=== PATIENT | female | born 1940 | race Two or more races ===

== ENCOUNTER 2016-05-02 12:33 | Inpatient (IN) | payer MEDICARE, BC ==
[2016-05-02] VITALS (31 sets, daily range): BP systolic 45–176; BP diastolic 23–127
[~2016-05-02] VITALS: Ht 165.1 cm; Wt 64.9 kg
[2016-05-02] MEDS ORDERED: IV NS 0.9% 500 ML BAG IV ONE (13:00)
[2016-05-02] MEDS ORDERED: PROPOFOL 100 ML IV ONE (13:03)
[2016-05-02] MEDS ORDERED: IV SET PRIMARY PUMP SET 1 EA INFUS.SET MC ONE ×5 (13:03→21:51)
[2016-05-02 14:00] LABS: BASOPHILS # (AUTO) 0.1 /CMM (0.0-0.2); BASOPHILS % (AUTO) 0.8 % (0.0-2.0); DIFF TOTAL % 100 %; EOSINOPHILS % (AUTO) 0.1 % (0.0-6.0); HEMATOCRIT 42 % (33-45); HEMOGLOBIN 12.9 g/dL (11.5-14.8); LYMPHOCYTES # (AUTO) 0.8 /CMM (0.8-4.8); MEAN CORPUSCULAR HEMOGLOBIN 27 PG (26.0-33.0); MEAN CORPUSCULAR HGB CONC 31 g/dl (31.0-36.0); MEAN CORPUSCULAR VOLUME 90 fL (82-100); MONOCYTES # (AUTO) 0.3 /CMM (0.1-1.30); NEUTROPHILS # (AUTO) 11.9 /CMM (1.8-8.9); NEUTROPHILS % (AUTO) 91.1 % (43.0-81.0); PLATELET COUNT (AUTO) 151 /CMM (150-450); RED BLOOD CELL COUNT(AUTO) 4.71 MIL/uL (4.0-5.2); WHITE BLOOD COUNT (AUTO) 13.1 K/uL (4.3-11.0)
[2016-05-02 14:12] LABS: INR 3.28 (0.87-1.13); PROTHROMBIN TIME 34.4 SECS (9.5-12.7)
[2016-05-02 14:17] LABS: TROPONIN I 0.132 ng/mL (0.00-0.056)
[2016-05-02] MEDS ORDERED: IV NS 0.9% 500 ML IV ONE (14:26)
[2016-05-02] MEDS ORDERED: IV SET PRIMARY 1 EA INFUS.SET MC ONE ×3 (14:26→14:49)
[2016-05-02] MEDS ORDERED: DOPAMINE IV ONE (14:30)
[2016-05-02] MEDS ORDERED: CEFTRIAXONE 1GM BAG (ER ONLY) 50 ML IV ONE ×2 (14:30→14:49)
[2016-05-02] MEDS ORDERED: IV NS 0.9% 1,000 ML BAG IV ONE ×2 (14:30→16:00)
[2016-05-02 14:34] LABS: ALANINE AMINOTRANSFERASE 561 U/L (12-78); ALBUMIN 2.3 g/dL (3.4-5.0); ANION GAP 32 (5-14); BILIRUBIN,DIRECT 0.5 mg/dL (0.0-0.2); BILIRUBIN,TOTAL 1.1 mg/dL (0.2-1.0); CALCIUM, SERUM 8.6 mg/dL (8.5-10.1); CARBON DIOXIDE 15 mmol/L (21-32); CHLORIDE 117 mmol/L (98-107); CREATININE 3.4 mg/dL (0.6-1.3); GLUCOSE 62 mg/dL (74-106); INDIRECT BILIRUBIN 0.6 mg/dL (0.0-1.1); TOTAL PROTEIN, SERUM 6.4 g/dL (6.4-8.2)
[2016-05-02] MEDS ORDERED: CLON0.1T PO (14:35)
[2016-05-02] MEDS ORDERED: AMLO5TAB2 PO (14:35)
[2016-05-02] MEDS ORDERED: WARF1TAB47 PO (14:35)
[2016-05-02] MEDS ORDERED: MIRT7.5T10 PO (14:35)
[2016-05-02] MEDS ORDERED: ATOR10TA PO (14:35)
[2016-05-02] MEDS ORDERED: METO25TA6 PO (14:35)
[2016-05-02 14:36] LABS: SODIUM SERUM 156 mmol/L (136-145)
[2016-05-02 14:43] LABS: POTASSIUM 6.8 mmol/L (3.5-5.1); UREA NITROGEN, BLOOD 81 mg/dL (7-18)
[2016-05-02 14:44] LABS: KETONES,URINE Negative (NEGATIVE); LEUKOCYTE ESTERASE ,URINE Large (NEGATIVE); PH,URINE 8.5 (5.0-8.0)
[2016-05-02 14:46] LABS: LACTIC ACID 15.8 mmol/L (0.4-2.0)
[2016-05-02] MEDS ORDERED: IV NS 0.9% 1,000 ML ONE ×2 (14:46→15:29)
[2016-05-02 14:48] LABS: ADD UA MICROSCOPIC YES
[2016-05-02 14:54] LABS: *LACTIC ACID REFLEX FLAG YES
[2016-05-02] MEDS ORDERED: NOREPINEPHRINE 8 MG in IV D5W 500 ML IV PRN (15:00)
[2016-05-02] MEDS ORDERED: SODIUM BICARBONATE SYR 50 MEQ/50 ML DISP.SYRIN IV ONE (15:00)
[2016-05-02] MEDS ORDERED: DEXTROSE 50%-WATER 50 ML DISP.SYRIN IV ONE (15:00)
[2016-05-02] MEDS ORDERED: ALBUTEROL FS 2.5 MG/3 ML VIAL.NEB NEB ONE (15:00)
[2016-05-02] MEDS ORDERED: SODIUM BICARBONATE SYR 100 MEQ in IV D5W 1,000 ML IV ONE (15:00)
[2016-05-02] MEDS ORDERED: INSULIN REGULAR, HUMAN 100 UNIT/ML 10 ML VIAL IV ONE (15:00)
[2016-05-02 15:01] LABS: ADD URINE CULTURE YES; RBC,URINE 21-50 /HPF (0-2); WBC,URINE TOO NUMEROUS TO COUN /HPF (0-3)
[2016-05-02] MEDS ORDERED: INSULIN REGULAR, HUMAN 100 UNIT/ML 10 ML VIAL ONE (15:01)
[2016-05-02] MEDS ORDERED: DEXTROSE 50%-WATER 50 ML DISP.SYRIN ONE ×3 (15:01→23:53)
[2016-05-02] MEDS ORDERED: SODIUM BICARBONATE SYR 50 MEQ/50 ML DISP.SYRIN ONE ×2 (15:01→23:53)
[2016-05-02 15:17] LABS: ASPARTATE AMINOTRANSFERASE 3059 U/L (15-37)
[2016-05-02] MEDS ORDERED: PHYTONADIONE INJ 5 MG in IV D5W 50 ML IV ONE (16:00)
[2016-05-02 16:33] LABS: ABG BASE EXCESS -17.1 mmol/L; ABG HCO3 9.8 mmol/L; ABG PH 7.176 (7.350-7.450); ABG PO2 154.1 mmHg (75.0-100.0); ABG TOTAL HEMOGLOBIN 12.1 G/dL (12.0-16.0); ALLEN TEST Pass; AaDO2 531.9 mmHg; O2Hb 95.9 % (94.0-97.0)
[2016-05-02] MEDS: NOREPINEPHRINE 16 MG in IV D5W 500 ML IV PRN (18:02)
[2016-05-02] MEDS: PHENYLEPHRINE 80 MG in IV D5W 250 ML IV PRN (18:04)
[2016-05-02 20:12] LABS: CALCIUM, SERUM 8.7 mg/dL (8.5-10.1); CREATININE 2.9 mg/dL (0.6-1.3)
[2016-05-02 20:19] LABS: POTASSIUM 7.5 mmol/L (3.5-5.1)
[2016-05-02] MEDS ORDERED: DEXTROSE 50%-WATER 50 ML DISP.SYRIN IVP ONE (20:30)
[2016-05-02 21:09] LABS: PHOSPHORUS 9.3 mg/dL (2.5-4.9)
[2016-05-02] MEDS ORDERED: IV D5/ 0.9% NACL 1,000 ML IV ONE ×2 (21:47→22:00)
[2016-05-02] MEDS ORDERED: IV D5/ 0.9% NACL 1,000 ML IV SCH (22:00)
[2016-05-02] MEDS ORDERED: TOBRAMYCIN 100 MG in IV D5W 50 ML IV ONE (22:00)
[2016-05-02 22:01] LABS: ABG BASE EXCESS -16.2 mmol/L; ABG HCO3 7.3 mmol/L; ABG PCO2 14.9 mmHg (35.0-45.0); ABG PH 7.306 (7.350-7.450); ABG PO2 314.1 mmHg (75.0-100.0); ABG TOTAL HEMOGLOBIN 13.7 G/dL (12.0-16.0); O2Hb 97.5 % (94.0-97.0)
[2016-05-02] MEDS ORDERED: SECONDARY IV SET 1 EA INFUS.SET MC ONE (22:18)
[2016-05-02] MEDS ORDERED: MEROPENEM 500 MG VIAL IV ONE (22:28)
[2016-05-02] MEDS ORDERED: IV NS 0.9% 50 ML IV ONE (22:42)
[2016-05-02] MEDS ORDERED: IV D5/ 0.9% NACL 1,000 ML IV PRN (23:00)
[2016-05-02] MEDS ORDERED: MEROPENEM 500 MG in IV NS 0.9% 50 ML IV SCH (23:00)
[2016-05-02] MEDS ORDERED: SODIUM POLYSTYRENE SULFONATE 15 G/60 ML BOTTLE ONE (23:54)
[2016-05-02] MEDS ORDERED: SODIUM BICARBONATE SYR 50 MEQ/50 ML DISP.SYRIN IV STA (23:55)
[2016-05-02] MEDS ORDERED: DEXTROSE 50%-WATER 50 ML DISP.SYRIN IVP STA (23:55)
[2016-05-03] VITALS (38 sets, daily range): BP systolic 21–128; BP diastolic 12–89
[2016-05-03] MEDS ORDERED: IV D5W 1,000 ML IV ONE (00:10)
[2016-05-03] MEDS ORDERED: SODIUM BICARBONATE SYR 50 MEQ/50 ML DISP.SYRIN ONE (00:11)
[2016-05-03] MEDS ORDERED: INSULIN REGULAR, HUMAN 100 UNIT/ML 10 ML VIAL IV STA ×2 (00:19→06:39)
[2016-05-03] MEDS ORDERED: SODIUM POLYSTYRENE SULFONATE 15 G/60 ML BOTTLE PO ONE (00:30)
[2016-05-03 00:48] LABS: ALBUMIN 1.5 g/dL (3.4-5.0); BILIRUBIN,TOTAL 1.1 mg/dL (0.2-1.0); CALCIUM, SERUM 7.5 mg/dL (8.5-10.1); CREATININE 3.4 mg/dL (0.6-1.3); TOTAL PROTEIN, SERUM 4.6 g/dL (6.4-8.2)
[2016-05-03 00:50] LABS: POTASSIUM 7.1 mmol/L (3.5-5.1)
[2016-05-03] MEDS ORDERED: VASOPRESSIN INJ 20 UNIT/ML VIAL ONE (01:13)
[2016-05-03] MEDS ORDERED: IV D5W 500 ML IV ONE (01:13)
[2016-05-03] MEDS ORDERED: IV SET PRIMARY PUMP SET 1 EA INFUS.SET MC ONE ×2 (01:14→06:41)
[2016-05-03] MEDS: NOREPINEPHRINE 16 MG in IV D5W 500 ML IV PRN (01:25)
[2016-05-03] MEDS: PHENYLEPHRINE 80 MG in IV D5W 250 ML IV PRN ×2 (01:26→05:05)
[2016-05-03] MEDS ORDERED: VASOPRESSIN INJ 50 UNIT in IV D5W 497.5 ML IV PRN (01:30)
[2016-05-03] MEDS ORDERED: Sodium Bicarbonate 100 MEQ in IV D5W 1,000 ML IV PRN (02:00)
[2016-05-03] MEDS ORDERED: POLYVINYL ALCOHOL 15 ML BOTTLE EACHEYE PRN (04:30)
[2016-05-03 05:49] LABS: ALBUMIN 1.6 g/dL (3.4-5.0); BILIRUBIN,TOTAL 1.5 mg/dL (0.2-1.0); CALCIUM, SERUM 6.8 mg/dL (8.5-10.1); LACTIC ACID 27.4 mmol/L (0.4-2.0); TOTAL PROTEIN, SERUM 4.9 g/dL (6.4-8.2)
[2016-05-03 05:56] LABS: POTASSIUM 6.8 mmol/L (3.5-5.1)
[2016-05-03] MEDS ORDERED: CALCIUM CHLORIDE 1,000 MG/10 ML DISP.SYRIN IV STA (06:39)
[2016-05-03] MEDS ORDERED: DEXTROSE 50%-WATER 50 ML DISP.SYRIN IVP STA (06:39)
[2016-05-03] MEDS ORDERED: SODIUM BICARBONATE SYR 50 MEQ/50 ML DISP.SYRIN IV STA (06:39)
[2016-05-03] MEDS ORDERED: CALCIUM CHLORIDE 1,000 MG/10 ML DISP.SYRIN ONE (06:41)
[2016-05-03] MEDS ORDERED: IV D5W 250 ML IV ONE (06:41)
[2016-05-03] MEDS ORDERED: DEXTROSE 50%-WATER 50 ML DISP.SYRIN ONE (06:41)
[2016-05-03] MEDS ORDERED: IV NS 0.9% 500 ML IV ONE (07:41)
[2016-05-03] MEDS ORDERED: HYDROCORTISONE SOD SUCCINATE 100 MG/2 ML VIAL IV SCH (09:00)
[2016-05-03] MEDS ORDERED: SODIUM BICARBONATE SYR 50 MEQ/50 ML DISP.SYRIN IV ONE ×2 (09:16→13:32)
[2016-05-03] MEDS ORDERED: EPINEPHRINE (1:10,000) SYRINGE 1 MG/10 ML DISP.SYRIN IVP ONE ×3 (09:16→13:32)
[2016-05-03] MEDS ORDERED: ATROPINE SULFATE 1 MG/10 ML DISP.SYRIN IV ONE (09:16)
[2016-05-03] MEDS ORDERED: FEE PK DOSING 1 MIN EA MC ONE ×2 (09:18→09:19)
[2016-05-03] MEDS ORDERED: SUCCINYLCHOLINE CHLORIDE 20 MG/ML VIAL IV ONE (09:19)
[2016-05-03] MEDS ORDERED: ETOMIDATE 2 MG/ML VIAL IV ONE (09:19)
[2016-05-03] MEDS ORDERED: FEE EMEERGENCY 1 MIN EA MC ONE ×2 (09:21→13:32)
[2016-05-03] MEDS ORDERED: DEXTROSE 50%-WATER 50 ML DISP.SYRIN IV ONE (13:32)
[2016-05-03] MEDS ORDERED: CALCIUM CHLORIDE 1,000 MG/10 ML DISP.SYRIN IV ONE (13:59)
== END 2016-05-03 13:33 | disposition expired | DRG 871 ==
LOC: ER 12:34 → ICU 14:44
PROVIDERS: ADMIT Internal Medicine; ATTEND Internal Medicine
PROC: 5A1935Z Respiratory Ventilation, Less than 24 Consecutive Hours (ICD-10-PCS; principal; 2016-05-02)
PROC: 0BH18EZ Insertion of Endotracheal Airway into Trachea, Via Natural or Artificial Opening Endoscopic (ICD-10-PCS; 2016-05-02)
PROC: 02HV33Z Insertion of Infusion Device into Superior Vena Cava, Percutaneous Approach (ICD-10-PCS; 2016-05-02)
PROC: B548ZZA Ultrasonography of Superior Vena Cava, Guidance (ICD-10-PCS; 2016-05-02)
PROC: 5A12012 Performance of Cardiac Output, Single, Manual (ICD-10-PCS; 2016-05-03)
DX: A41.9 Sepsis, unspecified organism (principal); G93.40 Encephalopathy, unspecified; K72.00 Acute and subacute hepatic failure without coma; R65.21 Severe sepsis with septic shock; J96.90 Respiratory failure, unspecified, unspecified whether with hypoxia or hypercapnia; E87.0 Hyperosmolality and hypernatremia; I69.351 Hemiplegia and hemiparesis following cerebral infarction affecting right dominant side; N39.0 Urinary tract infection, site not specified; N17.9 Acute kidney failure, unspecified; E87.2 Acidosis; G93.1 Anoxic brain damage, not elsewhere classified; E87.5 Hyperkalemia; I10 Essential (primary) hypertension; I09.9 Rheumatic heart disease, unspecified; I50.9 Heart failure, unspecified; I48.2 Chronic atrial fibrillation; Z93.0 Tracheostomy status; Z95.2 Presence of prosthetic heart valve; E11.649 Type 2 diabetes mellitus with hypoglycemia without coma; B96.4 Proteus (mirabilis) (morganii) as the cause of diseases classified elsewhere; E86.0 Dehydration; Z79.01 Long term (current) use of anticoagulants
CPT/HCPCS: 31720; 36415; 36600; 70450-TC; 71010-TC; 80048-TC; 80053-TC; 80076-TC; 81000-TC; 82803-TC; 82962-TC; 83605-TC; 83735-TC; 83880; 84100-TC; 84484-TC; 85025-TC; 85730-TC; 87040-TC; 87081-TC; 87086-TC; 87186-TC; 94002-TC; 94003-TC; 94760-TC; 99082-TC; A4216; A4606; A6403; C1751; J0171; J0330; J0461; J0696; J1265; J1815; J2185; J2370; J3260; J3430; J3490; J7030; J7040; J7042; J7060; J7070; Z7610